=== PATIENT | female | born 1960 | race Two or more races ===

== ENCOUNTER → 2016-05-25 | Outpatient (REF) | payer OTHER | LOC: M SFHCWAGY 11:15 | PROVIDERS: ATTEND Nurse Practitioner Family | DX: Z12.72 Encounter for screening for malignant neoplasm of vagina (principal); N95.2 Postmenopausal atrophic vaginitis ==

== ENCOUNTER 2018-02-09 08:08 | Day surgery (SDC) | payer OTHER ==
[2018-02-09] MEDS ORDERED: PROPOFOL 200 MG/20 ML VIAL As Ordered ×3 (08:15→09:51)
[2018-02-09] MEDS ORDERED: LIDOCAINE 2% INJ 100 MG/5 ML SDV (FOR ANES.) As Ordered (08:15)
[2018-02-09] MEDS: NS 1,000 ML IV (08:45)
== END 2018-02-09 10:26 | disposition home or self-care (01) ==
LOC: M OPP 08:08
DX: Z12.11 Encounter for screening for malignant neoplasm of colon (principal); Z86.010 Personal history of colon polyps; D12.5 Benign neoplasm of sigmoid colon; K57.30 Diverticulosis of large intestine without perforation or abscess without bleeding; K21.9 Gastro-esophageal reflux disease without esophagitis; K29.70 Gastritis, unspecified, without bleeding; R00.2 Palpitations; I10 Essential (primary) hypertension; E78.5 Hyperlipidemia, unspecified; E03.9 Hypothyroidism, unspecified; E05.00 Thyrotoxicosis with diffuse goiter without thyrotoxic crisis or storm; R12 Heartburn; M06.9 Rheumatoid arthritis, unspecified; M79.7 Fibromyalgia; M32.9 Systemic lupus erythematosus, unspecified; M81.0 Age-related osteoporosis without current pathological fracture; F32.9 Major depressive disorder, single episode, unspecified; F41.9 Anxiety disorder, unspecified; E66.9 Obesity, unspecified; R56.9 Unspecified convulsions; J45.909 Unspecified asthma, uncomplicated; R06.83 Snoring; G47.30 Sleep apnea, unspecified; Z87.891 Personal history of nicotine dependence; Z79.82 Long term (current) use of aspirin; Z79.899 Other long term (current) drug therapy; Z80.0 Family history of malignant neoplasm of digestive organs
CPT/HCPCS: 45380

== ENCOUNTER → 2021-09-09 | Outpatient (CLI) | payer OTHER, MEDICAID ==
[~2021-09-09] MED LIST: ASPI1CHW2 PO; ASPI81TA21 PO; ATOR40TA75 PO; BREO1INH3 PO; CETI10TA PO; DOCU100C16 PO; FOLIC; HYDR200T3 PO; LEVO-88 PO; METH2.5T48 PO; METO50TA7 PO; MONT10TA97 PO; OMEP40CA4 PO; VALT500T PO; VENTAER IN
== END ==
LOC: M WHC 13:28
PROVIDERS: ATTEND Advanced Practice Midwife
DX: Z12.31 Encounter for screening mammogram for malignant neoplasm of breast (principal)

== ENCOUNTER → 2022-10-11 | Outpatient (CLI) | payer MEDICAID, OTHER ==
[~2022-10-11] MED LIST changes: -HYDR200T3 PO; +HYDR200T46 PO
== END ==
LOC: M WHC 09:48
PROVIDERS: ATTEND Physician Assistant Medical
DX: Z12.31 Encounter for screening mammogram for malignant neoplasm of breast (principal); Z80.3 Family history of malignant neoplasm of breast

== ENCOUNTER 2023-03-21 18:51 | Emergency (ER) | payer OTHER ==
[~2023-03-21] VITALS: Ht 165.1 cm; Wt 104.5 kg
[2023-03-21] MEDS ORDERED: DICL5SOL3 TOP (22:56)
[2023-03-21] MEDS ORDERED: LEVO50TA5 PO (22:56)
[2023-03-21] MEDS ORDERED: METO100T5 PO (22:56)
[2023-03-21] MEDS ORDERED: NYST100085 TOP (23:02)
[2023-03-21] MEDS ORDERED: ALEN70TA82 PO (23:02)
[2023-03-21] MEDS ORDERED: GLUC1TAB58 PO (23:02)
[2023-03-21] MEDS ORDERED: PROA1AER2 INH (23:04)
[2023-03-21] MEDS ORDERED: NAPR-885 PO (23:12)
[2023-03-21] MEDS ORDERED: VITA500T40 PO (23:12)
[2023-03-21] MEDS ORDERED: OYST500T92 PO (23:12)
[2023-03-21] MEDS ORDERED: ACET1TAB55 PO (23:12)
[2023-03-21] MEDS ORDERED: ACETAMINOPHEN 500 MG TAB PO ONE (23:40)
[2023-03-22 00:34] VITALS: BP 136/75; TEMP 98; O2SAT 95
== END 2023-03-22 00:53 | disposition home or self-care (01) ==
LOC: M ED 18:51 → EDBD 18:51 → M ED 03-22 00:53
DX: S42.352A Displaced comminuted fracture of shaft of humerus, left arm, initial encounter for closed fracture (principal); W19.XXXA Unspecified fall, initial encounter; G40.909 Epilepsy, unspecified, not intractable, without status epilepticus; G47.33 Obstructive sleep apnea (adult) (pediatric); J45.909 Unspecified asthma, uncomplicated; Z86.79 Personal history of other diseases of the circulatory system; Y92.009 Unspecified place in unspecified non-institutional (private) residence as the place of occurrence of the external cause; Y93.89 Activity, other specified; Y99.9 Unspecified external cause status; Z91.013 Allergy to seafood; Z91.048 Other nonmedicinal substance allergy status; Z79.52 Long term (current) use of systemic steroids; Z79.82 Long term (current) use of aspirin; Z79.02 Long term (current) use of antithrombotics/antiplatelets; Z79.83 Long term (current) use of bisphosphonates; Z79.899 Other long term (current) drug therapy

== ENCOUNTER → 2023-03-22 | Outpatient (CLI) | payer OTHER ==
[~2023-03-22] MED LIST changes: +ACET1TAB55 PO; +ALEN70TA82 PO; +DICL5SOL3 TOP; +GLUC1TAB58 PO; +LEVO50TA5 PO; +METO100T5 PO; +NAPR-885 PO; +NYST100085 TOP; +OYST500T92 PO; +PROA1AER2 INH; +VITA500T40 PO
== END ==
LOC: M RAD 12:20
PROVIDERS: ATTEND Orthopaedic Surgery Hand Surgery
DX: S42.252A Displaced fracture of greater tuberosity of left humerus, initial encounter for closed fracture (principal); S42.292A Other displaced fracture of upper end of left humerus, initial encounter for closed fracture; X58.XXXA Exposure to other specified factors, initial encounter; Y92.9 Unspecified place or not applicable; Y93.9 Activity, unspecified; Y99.9 Unspecified external cause status

== ENCOUNTER 2023-04-22 07:24 | Observation (INO) | payer OTHER ==
[~2023-04-22] VITALS: Ht 165.1 cm; Wt 105.6 kg
[~2023-04-22 07:24] MED LIST changes: +FLON1SPR; +FOLI1TAB11 PO; +HYDR100T33 PO; +PERC5TAB12 PO; +ceFAZolin SOD 2 GM in IV 1 EA IV ONE
[2023-04-22] MEDS ORDERED: LR 1,000 ML IV SCH ×2 (07:55→14:00)
[2023-04-22] MEDS ORDERED: fentaNYL 100 MCG/2 ML INJECTION As Ordered ONE (09:48)
[2023-04-22] MEDS ORDERED: KETOROLAC 60MG 2ML VIAL As Ordered ONE (09:49)
[2023-04-22] MEDS ORDERED: propofoL 200 MG/20 ML VIAL As Ordered ONE (09:49)
[2023-04-22] MEDS ORDERED: LIDOCAINE 2% 100MG/5ML SDV (FOR ANES.) As Ordered ONE (09:49)
[2023-04-22] MEDS ORDERED: ONDANSETRON 4MG 2ML VIAL As Ordered ONE (09:49)
[2023-04-22] MEDS ORDERED: SUGAMMADEX SODIUM 500 MG/5 ML VIAL (BRIDION) As Ordered ONE (09:49)
[2023-04-22] MEDS ORDERED: ROCURONIUM BROMIDE 50MG/5ML VIAL As Ordered ONE (09:49)
[2023-04-22] MEDS ORDERED: ROPIvacaine 0.5% 30ML VIAL PN ONE (09:55)
[2023-04-22] MEDS ORDERED: LIDOCAINE 1% SDV 5ML VIAL PN ONE (09:55)
[2023-04-22] MEDS ORDERED: EPINEPHrine INJ 1 MG/ML 1ML AMP PN ONE (09:55)
[2023-04-22] MEDS ORDERED: VANCOMYCIN 1000MG/20ML VIAL As Ordered ONE (10:07)
[2023-04-22] MEDS ORDERED: TRANEXAMIC ACID 100 MG/ML 10ML VIAL As Ordered ONE (10:07)
[2023-04-22] MEDS ORDERED: BACITRACIN OINTMENT 30GM TUBE As Ordered ONE (10:07)
[2023-04-22] MEDS: fentaNYL 100 MCG/2 ML INJECTION IV PRN ×2 (10:08→10:21)
[2023-04-22] MEDS: MIDAZOLAM INJ 2MG/2ML VIAL IV PRN ×2 (10:08→10:13)
[2023-04-22] MEDS ORDERED: LIDOCAINE W/EPINEPHRINE 1% 20ML VIAL As Ordered ONE (10:39)
[2023-04-22] MEDS ORDERED: ACETAMINOPHEN 1000MG 100ML IV BAG As Ordered ONE (11:10)
[2023-04-22] MEDS ORDERED: oxyCODONE 5MG TAB PO PRN (14:00)
[2023-04-22] MEDS ORDERED: ONDANSETRON 4MG 2ML VIAL IV PRN ×2 (14:00→17:15)
[2023-04-22] MEDS ORDERED: HYDROMORPHONE HCL 0.5 MG/ 0.5 ML SYRINGE IV PRN (14:00)
[2023-04-22] MEDS ORDERED: fentaNYL 100 MCG/2 ML INJECTION IV PRN (14:00)
[2023-04-22] MEDS ORDERED: IBUPROFEN 600MG TAB PO PRN (17:15)
[2023-04-22] MEDS ORDERED: HYDROmorphone 2 MG TAB PO PRN (17:15)
[2023-04-22] MEDS ORDERED: SENNA 8.6 MG TAB (SENOKOT) PO PRN (17:15)
[2023-04-22] MEDS ORDERED: MORPHINE 4 MG/ML 1ML VIAL IV PRN (17:15)
[2023-04-22] MEDS ORDERED: ALBUTEROL 90 MCG/ACT 8GM HFA INHALER INH PRN (17:35)
[2023-04-22 18:15] VITALS: BP 117/64; TEMP 97.8; O2SAT 94
[2023-04-22 18:45] VITALS: BP 114/69; TEMP 97.4; O2SAT 94
[2023-04-22 19:09] LABS: HEMATOCRIT 34.5 % (36.0-47.0); HEMOGLOBIN 11.1 g/dl (12.0-15.5); MEAN CORPUSCULAR HEMOGLOBIN 30.2 pg (27.0-33.0); MEAN CORPUSCULAR HGB CONC 32.2 g/dl (32.0-36.5); PLATELET COUNT, AUTOMATED 195 10^3/uL (150-450); RED BLOOD COUNT 3.67 10^6/uL (4.00-5.40); WHITE BLOOD COUNT 10.3 10^3/uL (4.0-10.0)
[2023-04-22 19:38] LABS: BLOOD UREA NITROGEN 18 MG/DL (9-23); CALCIUM LEVEL 7.9 MG/DL (8.3-10.6); CARBON DIOXIDE LEVEL 27 MMOL/L (20-31); CHLORIDE LEVEL 105 MMOL/L (98-107); CREATININE FOR GFR 0.94 MG/DL (0.55-1.30); GLOMERULAR FILTRATION RATE > 60.0 (>45); GLUCOSE, FASTING 129 MG/DL (74-106); POTASSIUM SERUM 4.8 MMOL/L (3.5-5.1); SODIUM LEVEL 138 MMOL/L (136-145)
[2023-04-22 19:45] VITALS: BP 104/59; TEMP 97.5; O2SAT 96
[2023-04-22] MEDS: ceFAZolin SOD 2 GM in IV 1 EA IV SCH (20:31)
[2023-04-22 20:45] VITALS: BP 127/72; TEMP 96.7; O2SAT 95
[2023-04-22] MEDS: DOCUSATE SODIUM 100MG CAPSULE PO SCH (20:50)
[2023-04-22 21:45] VITALS: BP 101/61; TEMP 97.3; O2SAT 95
[2023-04-22 22:45] VITALS: BP 100/60; TEMP 97; O2SAT 96
[2023-04-23] MEDS: oxyCODONE 5MG TAB PO PRN ×3 (02:44→12:24)
[2023-04-23 02:45] VITALS: BP 102/61; TEMP 97.3; O2SAT 95
[2023-04-23] MEDS: ceFAZolin SOD 2 GM in IV 1 EA IV SCH ×2 (03:40→10:05)
[2023-04-23] MEDS ORDERED: PILL CUTTER 1 EACH XX PRN (03:50)
[2023-04-23] MEDS: ACETAMINOPHEN TAB 650MG DOSE (2X325MG) PO PRN ×2 (05:10→12:23)
[2023-04-23] MEDS ORDERED: LEVOTHYROXINE 100MCG TABLET (0.1MG) PO SCH (06:00)
[2023-04-23 06:45] VITALS: BP 100/63; TEMP 97.5; O2SAT 95
[2023-04-23 07:59] LABS: BASO % 0.3 % (0.0-1.0); EOS # 0.1 10^3/uL (0.0-0.5); EOS % 0.7 % (0.0-3.0); HEMOGLOBIN 10.1 g/dl (12.0-15.5); LYMPH % 20.3 % (24.0-44.0); MEAN CORPUSCULAR HEMOGLOBIN 30.3 pg (27.0-33.0); MEAN CORPUSCULAR HGB CONC 32.6 g/dl (32.0-36.5); MEAN CORPUSCULAR VOLUME 93.1 fl (80.0-96.0); MONO # 1.1 10^3/uL (0.0-0.8); MONO % 11.3 % (2.0-8.0); NEUTROPHILS # 6.6 10^3/uL (1.5-8.5); NEUTROPHILS % 67.1 % (36.0-66.0); PLATELET COUNT, AUTOMATED 208 10^3/uL (150-450); RED BLOOD COUNT 3.33 10^6/uL (4.00-5.40); WHITE BLOOD COUNT 9.9 10^3/uL (4.0-10.0)
[2023-04-23] MEDS: DOCUSATE SODIUM 100MG CAPSULE PO SCH (08:16)
[2023-04-23 08:30] VITALS: BP 97/59; TEMP 97.3; O2SAT 95
[2023-04-23] MEDS ORDERED: valACYclovir HCL 500 MG TAB PO SCH (09:00)
[2023-04-23] MEDS ORDERED: HEPARIN SOD (PORCINE) 5000UNITS/ML 1ML VIAL/SYRINGE SC SCH (09:00)
[2023-04-23] MEDS ORDERED: OMEPRAZOLE 20MG CAP PO SCH (09:00)
[2023-04-23 10:50] VITALS: BP 135/66; TEMP 97; O2SAT 95
[2023-04-23] MEDS ORDERED: OXYC1TAB23 PO (11:20)
== END 2023-04-23 14:45 | disposition home or self-care (01) ==
LOC: M SDC 07:24 → M MS5PR 07:25
PROVIDERS: ADMIT Student in an Organized Health Care Education/Training Program; ATTEND Student in an Organized Health Care Education/Training Program
DX: S42.202A Unspecified fracture of upper end of left humerus, initial encounter for closed fracture (principal); W01.0XXA Fall on same level from slipping, tripping and stumbling without subsequent striking against object, initial encounter; Y92.89 Other specified places as the place of occurrence of the external cause; Y93.9 Activity, unspecified; Y99.9 Unspecified external cause status; J45.909 Unspecified asthma, uncomplicated; G47.33 Obstructive sleep apnea (adult) (pediatric); K21.9 Gastro-esophageal reflux disease without esophagitis; I10 Essential (primary) hypertension; E03.9 Hypothyroidism, unspecified; F41.9 Anxiety disorder, unspecified; Z79.82 Long term (current) use of aspirin; Z79.899 Other long term (current) drug therapy; Z91.013 Allergy to seafood; Z88.2 Allergy status to sulfonamides; J30.2 Other seasonal allergic rhinitis
CPT/HCPCS: 23472; 36415; 73020; 80048; 82330; 85025; 85027; 88300; 96365; 96366; 96372; 97161; C1713; C1776; J0131; J0690; J1100; J1885; J2250; J2405; J3010; J3370

== ENCOUNTER → 2023-04-29 | Outpatient (CLI) | payer OTHER ==
[~2023-04-29] MED LIST changes: +OXYC1TAB23 PO; -ceFAZolin SOD 2 GM in IV 1 EA IV ONE
== END ==
LOC: M SOG 08:09
PROVIDERS: ATTEND Physician Assistant
DX: S42.242A 4-part fracture of surgical neck of left humerus, initial encounter for closed fracture (principal); Z96.612 Presence of left artificial shoulder joint; Y93.9 Activity, unspecified; Y92.9 Unspecified place or not applicable

== ENCOUNTER → 2023-05-17 | Outpatient (CLI) | payer OTHER | LOC: M SOG 08:00 | PROVIDERS: ATTEND Physician Assistant | DX: Z96.612 Presence of left artificial shoulder joint (principal); Z87.81 Personal history of (healed) traumatic fracture ==

== ENCOUNTER → 2023-06-09 | Outpatient (REF) | payer OTHER | LOC: M LAB REF 16:50 | PROVIDERS: ATTEND Physician Assistant | DX: S42.242D 4-part fracture of surgical neck of left humerus, subsequent encounter for fracture with routine healing (principal) ==

== ENCOUNTER → 2023-06-16 | Outpatient (CLI) | payer OTHER | LOC: M SOG 08:33 | PROVIDERS: ATTEND Physician Assistant | DX: Z96.612 Presence of left artificial shoulder joint (principal); M19.012 Primary osteoarthritis, left shoulder; Z87.81 Personal history of (healed) traumatic fracture ==

== ENCOUNTER → 2023-07-15 | Outpatient (CLI) | payer OTHER, MEDICAID | LOC: M SOG 15:37 | PROVIDERS: ATTEND Physician Assistant | DX: S42.242D 4-part fracture of surgical neck of left humerus, subsequent encounter for fracture with routine healing (principal); Y92.9 Unspecified place or not applicable; Y93.9 Activity, unspecified ==

== ENCOUNTER → 2023-08-23 | Outpatient (CLI) | payer MEDICAID, OTHER | LOC: M WHC 10:58 | PROVIDERS: ATTEND Physician Assistant Medical | DX: S43.202A Unspecified subluxation of left sternoclavicular joint, initial encounter (principal); X58.XXXA Exposure to other specified factors, initial encounter; Y92.9 Unspecified place or not applicable; Y93.9 Activity, unspecified; Y99.9 Unspecified external cause status; M85.89 Other specified disorders of bone density and structure, multiple sites ==

== ENCOUNTER → 2023-10-06 | Outpatient (CLI) | payer OTHER | LOC: M SOG 07:59 | PROVIDERS: ATTEND Physician Assistant | DX: S42.202A Unspecified fracture of upper end of left humerus, initial encounter for closed fracture (principal); X58.XXXA Exposure to other specified factors, initial encounter; Y92.9 Unspecified place or not applicable; Y93.9 Activity, unspecified; Y99.9 Unspecified external cause status ==

== ENCOUNTER 2023-10-15 13:32 | Inpatient (IN) | payer OTHER ==
[~2023-10-15] VITALS: Ht 162.6 cm; Wt 106.8 kg
[2023-10-15] MEDS ORDERED: VANCOMYCIN HCL IV ONE (16:15)
[2023-10-15] MEDS ORDERED: FLUID PLACE HOLDER IV ONE (16:15)
[2023-10-15] MEDS: VANCOMYCIN HCL 1,000 MG, VIAL MATE ADAPTER 1 EACH in D5W 250 ML IV ONE ×2 (16:32→17:58)
[2023-10-15] MEDS: ACETAMINOPHEN TAB 650MG DOSE (2X325MG) PO ONE (16:32)
[2023-10-15 16:39] LABS: BASO # 0.1 10^3/uL (0.0-0.2); BASO % 0.6 % (0.0-1.0); EOS # 0.3 10^3/uL (0.0-0.5); EOS % 2.8 % (0.0-3.0); HEMATOCRIT 32.6 % (36.0-47.0); HEMOGLOBIN 10.1 g/dl (12.0-15.5); LYMPH % 34.1 % (24.0-44.0); MEAN CORPUSCULAR VOLUME 90.3 fl (80.0-96.0); MONO # 0.8 10^3/uL (0.0-0.8); MONO % 9.1 % (2.0-8.0); NEUTROPHILS # 4.7 10^3/uL (1.5-8.5); NEUTROPHILS % 53.1 % (36.0-66.0); PLATELET COUNT, AUTOMATED 308 10^3/uL (150-450); RED BLOOD COUNT 3.61 10^6/uL (4.00-5.40); WHITE BLOOD COUNT 8.8 10^3/uL (4.0-10.0)
[2023-10-15] MEDS ORDERED: VANCOMYCIN HCL 1,000 MG, VIAL MATE ADAPTER 1 EACH in D5W 250 ML IV SCH (16:45)
[2023-10-15 16:46] LABS: ERYTHROCYTE SEDIMENTATION RATE 65 mm/hr (0-30)
[2023-10-15 17:09] LABS: BLOOD UREA NITROGEN 13 MG/DL (9-23); CALCIUM LEVEL 8.7 MG/DL (8.3-10.6); CARBON DIOXIDE LEVEL 28 MMOL/L (20-31); CHLORIDE LEVEL 105 MMOL/L (98-107); CREATININE FOR GFR 0.84 MG/DL (0.55-1.30); GLOMERULAR FILTRATION RATE > 60.0 (>45); GLUCOSE, FASTING 114 MG/DL (74-106); POTASSIUM SERUM 4.3 MMOL/L (3.5-5.1); SODIUM LEVEL 140 MMOL/L (136-145)
[2023-10-15 17:15] LABS: PROCALCITONIN <0.04 ng/ml
[2023-10-15] MEDS ORDERED: ALBUTEROL 90 MCG/ACT 8GM HFA INHALER INH PRN (17:50)
[2023-10-15 18:14] LABS: PROCALCITONIN <0.04 ng/ml
[2023-10-15] MEDS ORDERED: ALBU8.5H INH (18:58)
[2023-10-15] MEDS ORDERED: LEVO100T5 PO (18:58)
[2023-10-15] MEDS ORDERED: METO200T15 PO (18:58)
[2023-10-15] MEDS ORDERED: ELIQ5TAB PO (19:01)
[2023-10-15] MEDS ORDERED: ACET-907 PO (19:01)
[2023-10-15] MEDS ORDERED: NITR-67 PO (19:01)
[2023-10-15] MEDS ORDERED: ADVA230A INH (19:01)
[2023-10-15] MEDS ORDERED: HOME MED LIST COMPLETE! XX SCH (19:05)
[2023-10-15 19:54] VITALS: BP 131/80; TEMP 97.7; O2SAT 98
[2023-10-15] MEDS: ATORVASTATIN 20 MG TAB PO SCH (20:35)
[2023-10-15] MEDS: VANCOMYCIN HCL 1,000 MG, VIAL MATE ADAPTER 1 EACH in D5W 250 ML IV SCH (20:35)
[2023-10-15] MEDS: APIXABAN 5 MG TAB (ELIQUIS) PO SCH (20:36)
[2023-10-15] MEDS: MONTELUKAST 10 MG TAB PO SCH (20:36)
[2023-10-15] MEDS: METOPROLOL SUCC (TopROL XL) 100MG *XL* TAB PO SCH (20:36)
[2023-10-15] MEDS: HYDROXYCHLOROQUINE 200 MG TAB PO SCH (20:52)
[2023-10-15] MEDS: FLUTICASONE PROP 0.05% NASAL SPRAY 16 GM (FLONASE) NARES SCH (20:52)
[2023-10-15] MEDS ORDERED: ENTER DRUG NAME HERE (PATIENT'S OWN MED) INH SCH (21:00)
[2023-10-16 04:00] VITALS: BP 137/82; TEMP 97.5; O2SAT 97
[2023-10-16] MEDS: LEVOTHYROXINE 100MCG TABLET (0.1MG) PO SCH (05:37)
[2023-10-16 08:36] LABS: BASO % 0.4 % (0.0-1.0); EOS # 0.2 10^3/uL (0.0-0.5); EOS % 2.2 % (0.0-3.0); HEMATOCRIT 32.9 % (36.0-47.0); HEMOGLOBIN 10.5 g/dl (12.0-15.5); LYMPH # 2.3 10^3/uL (1.5-5.0); LYMPH % 25.6 % (24.0-44.0); MEAN CORPUSCULAR HEMOGLOBIN 28.1 pg (27.0-33.0); MEAN CORPUSCULAR HGB CONC 31.9 g/dl (32.0-36.5); MONO # 0.8 10^3/uL (0.0-0.8); MONO % 8.9 % (2.0-8.0); NEUTROPHILS # 5.6 10^3/uL (1.5-8.5); NEUTROPHILS % 62.6 % (36.0-66.0); PLATELET COUNT, AUTOMATED 319 10^3/uL (150-450); RED BLOOD COUNT 3.74 10^6/uL (4.00-5.40)
[2023-10-16] MEDS: OMEPRAZOLE 20MG CAP PO SCH (08:45)
[2023-10-16] MEDS: CETIRIZINE (ZyrTEC) 10 MG TAB PO SCH (08:45)
[2023-10-16 08:51] LABS: HEMOGLOBIN A1c 5.8 % (4.0-6.0)
[2023-10-16 08:58] LABS: BLOOD UREA NITROGEN 10 MG/DL (9-23); CALCIUM LEVEL 8.8 MG/DL (8.3-10.6); CARBON DIOXIDE LEVEL 28 MMOL/L (20-31); CHLORIDE LEVEL 105 MMOL/L (98-107); CHOLESTEROL LEVEL 166 MG/DL (<200); CHOLESTEROL RISK RATIO 4.15 (<5); CREATININE FOR GFR 0.85 MG/DL (0.55-1.30); GLOMERULAR FILTRATION RATE > 60.0 (>45); GLUCOSE, FASTING 129 MG/DL (74-106); LDL CHOLESTEROL 96.8 MG/DL (<100); POTASSIUM SERUM 4.1 MMOL/L (3.5-5.1); SODIUM LEVEL 140 MMOL/L (136-145); TRIGLYCERIDES LEVEL 146 MG/DL (<150)
[2023-10-16] MEDS ORDERED: METOPROLOL TARTRATE 100MG TAB PO SCH (09:00)
[2023-10-16 09:01] LABS: THYROID STIMULATING HORMONE 2.057 uIU/ML (0.55-4.78)
[2023-10-16] MEDS: ADVAIR HFA 230/21MCG INHALER INH SCH (10:22)
[2023-10-16 12:24] VITALS: BP 123/73; TEMP 97.7; O2SAT 98
[2023-10-16] MEDS: ACETAMINOPHEN TAB 650MG DOSE (2X325MG) PO PRN (16:03)
[2023-10-16] MEDS: cefTRIAXone SOD 1 GM in D5W MINI-BAG PLUS 50 ML IV SCH (18:05)
[2023-10-16 21:02] VITALS: BP 127/70; TEMP 97.3; O2SAT 97
[2023-10-17 04:06] VITALS: BP 125/73; TEMP 97.7; O2SAT 97
[2023-10-17 07:02] LABS: BASO # 0.1 10^3/uL (0.0-0.2); BASO % 0.7 % (0.0-1.0); EOS # 0.2 10^3/uL (0.0-0.5); EOS % 2.4 % (0.0-3.0); HEMATOCRIT 31.5 % (36.0-47.0); HEMOGLOBIN 9.9 g/dl (12.0-15.5); LYMPH # 2.4 10^3/uL (1.5-5.0); LYMPH % 32.7 % (24.0-44.0); MEAN CORPUSCULAR HEMOGLOBIN 27.7 pg (27.0-33.0); MEAN CORPUSCULAR HGB CONC 31.4 g/dl (32.0-36.5); MEAN CORPUSCULAR VOLUME 88.2 fl (80.0-96.0); MONO # 0.8 10^3/uL (0.0-0.8); MONO % 10.9 % (2.0-8.0); NEUTROPHILS # 3.9 10^3/uL (1.5-8.5); NEUTROPHILS % 52.9 % (36.0-66.0); PLATELET COUNT, AUTOMATED 284 10^3/uL (150-450); RED BLOOD COUNT 3.57 10^6/uL (4.00-5.40); WHITE BLOOD COUNT 7.4 10^3/uL (4.0-10.0)
[2023-10-17 07:25] LABS: BLOOD UREA NITROGEN 9 MG/DL (9-23); CALCIUM LEVEL 8.4 MG/DL (8.3-10.6); CARBON DIOXIDE LEVEL 27 MMOL/L (20-31); CHLORIDE LEVEL 106 MMOL/L (98-107); CREATININE FOR GFR 0.86 MG/DL (0.55-1.30); GLOMERULAR FILTRATION RATE > 60.0 (>45); GLUCOSE, FASTING 105 MG/DL (74-106); POTASSIUM SERUM 4.4 MMOL/L (3.5-5.1); SODIUM LEVEL 140 MMOL/L (136-145)
[2023-10-17 12:00] VITALS: BP 128/75; TEMP 99; O2SAT 99
[2023-10-17 20:25] VITALS: BP 118/72; TEMP 97.3; O2SAT 95
[2023-10-17 21:44] VITALS: BP 127/74; O2SAT 96
[2023-10-18 04:43] VITALS: BP 109/69; TEMP 97.3; O2SAT 96
[2023-10-18 06:46] LABS: BASO # 0.1 10^3/uL (0.0-0.2); BASO % 0.7 % (0.0-1.0); EOS # 0.2 10^3/uL (0.0-0.5); EOS % 2.8 % (0.0-3.0); HEMATOCRIT 31.7 % (36.0-47.0); HEMOGLOBIN 9.9 g/dl (12.0-15.5); LYMPH # 2.6 10^3/uL (1.5-5.0); MEAN CORPUSCULAR HEMOGLOBIN 27.8 pg (27.0-33.0); MEAN CORPUSCULAR HGB CONC 31.2 g/dl (32.0-36.5); MONO # 0.8 10^3/uL (0.0-0.8); MONO % 10.8 % (2.0-8.0); NEUTROPHILS # 3.5 10^3/uL (1.5-8.5); NEUTROPHILS % 49.6 % (36.0-66.0); PLATELET COUNT, AUTOMATED 302 10^3/uL (150-450); RED BLOOD COUNT 3.56 10^6/uL (4.00-5.40); WHITE BLOOD COUNT 7.1 10^3/uL (4.0-10.0)
[2023-10-18 07:12] LABS: BLOOD UREA NITROGEN 11 MG/DL (9-23); CALCIUM LEVEL 8.6 MG/DL (8.3-10.6); CARBON DIOXIDE LEVEL 28 MMOL/L (20-31); CHLORIDE LEVEL 106 MMOL/L (98-107); CREATININE FOR GFR 0.89 MG/DL (0.55-1.30); GLOMERULAR FILTRATION RATE > 60.0 (>45); GLUCOSE, FASTING 104 MG/DL (74-106); POTASSIUM SERUM 4.3 MMOL/L (3.5-5.1); SODIUM LEVEL 141 MMOL/L (136-145)
[2023-10-18 12:00] VITALS: BP 123/73; TEMP 97.2; O2SAT 96
[2023-10-18 20:00] VITALS: BP 118/72; TEMP 97.5; O2SAT 99
[2023-10-18 21:00] VITALS: BP 118/72
[2023-10-19 03:58] VITALS: BP 121/73; TEMP 97.2; O2SAT 97
[2023-10-19] MEDS: CEFDINIR 300 MG CAP (OMNICEF) PO SCH (09:52)
[2023-10-19 10:00] VITALS: BP 147/77; TEMP 98.1; O2SAT 95
[2023-10-19 12:00] VITALS: BP 147/77; TEMP 98.1; O2SAT 95
[2023-10-19] MEDS ORDERED: CEFD300CAP PO (12:17)
[2023-10-19] MEDS ORDERED: PROBCAP14 PO (12:17)
== END 2023-10-19 14:15 | disposition home or self-care (01) | DRG 349 ==
LOC: M ED 13:32 → M ED INP 16:39 → M MSPAV 19:50
PROVIDERS: ADMIT General Practice; ATTEND Student in an Organized Health Care Education/Training Program
DX: T84.59XA Infection and inflammatory reaction due to other internal joint prosthesis, initial encounter (principal); I48.92 Unspecified atrial flutter; I10 Essential (primary) hypertension; I48.91 Unspecified atrial fibrillation; E78.5 Hyperlipidemia, unspecified; J45.909 Unspecified asthma, uncomplicated; L02.412 Cutaneous abscess of left axilla; M06.9 Rheumatoid arthritis, unspecified; M81.0 Age-related osteoporosis without current pathological fracture; G47.33 Obstructive sleep apnea (adult) (pediatric); Z79.01 Long term (current) use of anticoagulants; E89.0 Postprocedural hypothyroidism; K21.9 Gastro-esophageal reflux disease without esophagitis; Z91.013 Allergy to seafood; Z88.2 Allergy status to sulfonamides; Z79.899 Other long term (current) drug therapy; F41.9 Anxiety disorder, unspecified; Z87.891 Personal history of nicotine dependence; Z79.82 Long term (current) use of aspirin; Y83.1 Surgical operation with implant of artificial internal device as the cause of abnormal reaction of the patient, or of later complication, without mention of misadventure at the time of the procedure

== ENCOUNTER → 2023-11-10 | Outpatient (CLI) | payer OTHER ==
[~2023-11-10] MED LIST changes: +ACET-907 PO; +ADVA230A INH; +ALBU8.5H INH; +CEFD300CAP PO; +ELIQ5TAB PO; +LEVO100T5 PO; +METO200T15 PO; +NITR-67 PO; +PROBCAP14 PO
== END ==
LOC: M WHC 12:55
PROVIDERS: ATTEND Physician Assistant Medical
DX: Z12.31 Encounter for screening mammogram for malignant neoplasm of breast (principal); R92.323 Mammographic fibroglandular density, bilateral breasts

== ENCOUNTER → 2024-01-02 | Outpatient (CLI) | payer OTHER ==
[2024-01-02 15:31] LABS: HEMATOCRIT 30.2 % (36.0-47.0); HEMOGLOBIN 9.5 g/dl (12.0-15.5); MEAN CORPUSCULAR HEMOGLOBIN 28.2 pg (27.0-33.0); MEAN CORPUSCULAR HGB CONC 31.5 g/dl (32.0-36.5); MEAN CORPUSCULAR VOLUME 89.6 fl (80.0-96.0); PLATELET COUNT, AUTOMATED 399 10^3/uL (150-450); RED BLOOD COUNT 3.37 10^6/uL (4.00-5.40); WHITE BLOOD COUNT 9.2 10^3/uL (4.0-10.0)
[2024-01-02 16:13] LABS: ERYTHROCYTE SEDIMENTATION RATE 72 mm/hr (0-30)
== END ==
LOC: M PLALAB 13:27
PROVIDERS: ATTEND Internal Medicine Infectious Disease
DX: L02.412 Cutaneous abscess of left axilla (principal); A49.01 Methicillin susceptible Staphylococcus aureus infection, unspecified site

== ENCOUNTER → 2024-01-19 | Outpatient (CLI) | payer OTHER | LOC: M SOG 07:21 | PROVIDERS: ATTEND Physician Assistant | DX: S42.242D 4-part fracture of surgical neck of left humerus, subsequent encounter for fracture with routine healing (principal); Z96.612 Presence of left artificial shoulder joint ==

== ENCOUNTER → 2024-01-25 | Outpatient (CLI) | payer OTHER ==
[2024-01-25 12:16] LABS: BASO # 0.1 10^3/uL (0.0-0.2); BASO % 0.9 % (0.0-1.0); EOS # 0.2 10^3/uL (0.0-0.5); EOS % 3.6 % (0.0-3.0); HEMATOCRIT 31.5 % (36.0-47.0); HEMOGLOBIN 9.6 g/dl (12.0-15.5); LYMPH # 2.9 10^3/uL (1.5-5.0); LYMPH % 43.3 % (24.0-44.0); MEAN CORPUSCULAR HEMOGLOBIN 27.8 pg (27.0-33.0); MEAN CORPUSCULAR HGB CONC 30.5 g/dl (32.0-36.5); MEAN CORPUSCULAR VOLUME 91.3 fl (80.0-96.0); MONO # 0.6 10^3/uL (0.0-0.8); MONO % 8.8 % (2.0-8.0); NEUTROPHILS # 2.8 10^3/uL (1.5-8.5); NEUTROPHILS % 43.1 % (36.0-66.0); PLATELET COUNT, AUTOMATED 291 10^3/uL (150-450); RED BLOOD COUNT 3.45 10^6/uL (4.00-5.40); WHITE BLOOD COUNT 6.6 10^3/uL (4.0-10.0)
[2024-01-25 12:21] LABS: ERYTHROCYTE SEDIMENTATION RATE 73 mm/hr (0-30)
[2024-01-25 13:06] LABS: BLOOD UREA NITROGEN 16 MG/DL (9-23); CALCIUM LEVEL 8.8 MG/DL (8.3-10.6); CARBON DIOXIDE LEVEL 29 MMOL/L (20-31); CHLORIDE LEVEL 106 MMOL/L (98-107); CREATININE FOR GFR 0.89 MG/DL (0.55-1.30); GLOMERULAR FILTRATION RATE > 60.0 (>45); GLUCOSE, FASTING 73 MG/DL (74-106); POTASSIUM SERUM 4.1 MMOL/L (3.5-5.1); SODIUM LEVEL 138 MMOL/L (136-145)
== END ==
LOC: M LAB 11:45
PROVIDERS: ATTEND Internal Medicine Infectious Disease
DX: L98.8 Other specified disorders of the skin and subcutaneous tissue (principal); Z96.612 Presence of left artificial shoulder joint

== ENCOUNTER → 2024-01-27 | Outpatient (CLI) | payer OTHER | LOC: M RAD 14:49 | PROVIDERS: ATTEND Internal Medicine Infectious Disease | DX: L98.8 Other specified disorders of the skin and subcutaneous tissue (principal); Z96.612 Presence of left artificial shoulder joint ==

== ENCOUNTER → 2024-02-16 | Outpatient (CLI) | payer OTHER ==
[~2024-02-16] MED LIST changes: +CEFA500C2 PO
[2024-02-16 15:04] LABS: BASO # 0.1 10^3/uL (0.0-0.2); BASO % 0.6 % (0.0-1.0); EOS # 0.3 10^3/uL (0.0-0.5); EOS % 3.9 % (0.0-3.0); HEMATOCRIT 31.4 % (36.0-47.0); HEMOGLOBIN 9.9 g/dl (12.0-15.5); LYMPH # 3.4 10^3/uL (1.5-5.0); MEAN CORPUSCULAR HEMOGLOBIN 29.2 pg (27.0-33.0); MEAN CORPUSCULAR HGB CONC 31.5 g/dl (32.0-36.5); MEAN CORPUSCULAR VOLUME 92.6 fl (80.0-96.0); MONO # 0.7 10^3/uL (0.0-0.8); MONO % 9.1 % (2.0-8.0); NEUTROPHILS # 3.6 10^3/uL (1.5-8.5); NEUTROPHILS % 44.2 % (36.0-66.0); PLATELET COUNT, AUTOMATED 317 10^3/uL (150-450); RED BLOOD COUNT 3.39 10^6/uL (4.00-5.40); WHITE BLOOD COUNT 8.2 10^3/uL (4.0-10.0)
[2024-02-16 15:08] LABS: C REACTIVE PROTEIN QUANTITATIV 0.6 MG/DL (<1.0)
[2024-02-16 15:11] LABS: ERYTHROCYTE SEDIMENTATION RATE 56 mm/hr (0-30)
[2024-02-17 08:40] LABS: PERCENT SATURATION 13.4 % (13.2-45.0)
[2024-02-17 08:43] LABS: FOLATE 12.2 NG/ML (>5.4)
== END ==
LOC: M PLALAB 12:52
PROVIDERS: ATTEND Internal Medicine Infectious Disease
DX: A49.01 Methicillin susceptible Staphylococcus aureus infection, unspecified site (principal); D64.9 Anemia, unspecified

== ENCOUNTER → 2024-02-20 | Outpatient (CLI) | payer OTHER ==
[~2024-02-20] MED LIST changes: +ISOVUE-300 61% 100ML VIAL As Ordered ONE; +LIDOCAINE 1% MDV 20ML VIAL As Ordered ONE
[2024-02-20 09:50] VITALS: TEMP 97.7
[2024-02-20 10:55] VITALS: BP 132/64; O2SAT 97
== END ==
LOC: M IRPRO 09:41
PROVIDERS: ATTEND Internal Medicine Infectious Disease
DX: L98.8 Other specified disorders of the skin and subcutaneous tissue (principal); Z96.612 Presence of left artificial shoulder joint
CPT/HCPCS: 20500; Q9967

== ENCOUNTER 2024-02-27 06:13 | Inpatient (IN) | payer OTHER ==
[~2024-02-27] VITALS: Ht 162.6 cm; Wt 107.5 kg
[2024-02-27] VITALS (11 sets, daily range): BP systolic 105–118; BP diastolic 67–78; TEMP 96.8–98.1; O2SAT 93–99
[~2024-02-27 06:13] MED LIST changes: +GLYCOPYRROLATE INJ 0.2 MG/ML 2 ML VIAL As Ordered ONE; -ISOVUE-300 61% 100ML VIAL As Ordered ONE; +KETOROLAC 60MG 2ML VIAL As Ordered ONE; -LIDOCAINE 1% MDV 20ML VIAL As Ordered ONE; +LIDOCAINE 2% 100MG/5ML SDV (FOR ANES.) As Ordered ONE; +MIDAZOLAM INJ 2MG/2ML VIAL As Ordered ONE; +ONDANSETRON 4MG 2ML VIAL As Ordered ONE; +ROCURONIUM BROMIDE 50MG/5ML VIAL As Ordered ONE; +fentaNYL 100 MCG/2 ML INJECTION As Ordered ONE; +propofoL 200 MG/20 ML VIAL As Ordered ONE
[2024-02-27] MEDS ORDERED: dexAMETHasone 10MG/1ML VIAL PRES.FREE PN ONE (06:50)
[2024-02-27] MEDS ORDERED: fentaNYL 100 MCG/2 ML INJECTION IV PRN ×2 (06:50→12:05)
[2024-02-27] MEDS ORDERED: LIDOCAINE 1% SDV 5ML VIAL PN ONE (06:50)
[2024-02-27] MEDS: NS 1,000 ML IV SCH ×2 (07:15→12:05)
[2024-02-27] MEDS: EPINEPHrine INJ 1 MG/ML 1ML AMP As Ordered ONE (07:18)
[2024-02-27] MEDS: MIDAZOLAM INJ 2MG/2ML VIAL IV PRN (07:54)
[2024-02-27 08:03] LABS: HEMATOCRIT 32.9 % (36.0-47.0); HEMOGLOBIN 10.2 g/dl (12.0-15.5); MEAN CORPUSCULAR HEMOGLOBIN 28.1 pg (27.0-33.0); MEAN CORPUSCULAR VOLUME 90.6 fl (80.0-96.0); PLATELET COUNT, AUTOMATED 294 10^3/uL (150-450); RED BLOOD COUNT 3.63 10^6/uL (4.00-5.40); WHITE BLOOD COUNT 7.2 10^3/uL (4.0-10.0)
[2024-02-27] MEDS: ceFAZolin SOD 2 GM in IV 1 EA IV ONE (08:16)
[2024-02-27] MEDS: ROPIvacaine 0.5% 30ML VIAL PN ONE (08:22)
[2024-02-27] MEDS ORDERED: ePHEDrine SULFATE 25 MG/5 ML(5MG/ML) SYRINGE As Ordered ONE (08:24)
[2024-02-27] MEDS: TRANEXAMIC ACID 100 MG/ML 10ML VIAL As Ordered ONE (08:45)
[2024-02-27] MEDS ORDERED: PHENYLephrine 500MCG 5ML (100MCG/ML) SYRINGE As Ordered ONE (09:05)
[2024-02-27] MEDS: LIDOCAINE W/EPINEPHRINE 1% 20ML VIAL As Ordered ONE (09:15)
[2024-02-27] MEDS: LIDOCAINE 1% MDV 20ML VIAL As Ordered ONE (09:39)
[2024-02-27] MEDS: VANCOMYCIN 1000MG/20ML VIAL As Ordered ONE (09:40)
[2024-02-27] MEDS ORDERED: SUGAMMADEX SODIUM 500 MG/5 ML VIAL (BRIDION) As Ordered ONE (10:34)
[2024-02-27] MEDS ORDERED: oxyCODONE 5MG TAB PO PRN (12:05)
[2024-02-27] MEDS ORDERED: ONDANSETRON 4MG 2ML VIAL IV PRN (12:05)
[2024-02-27] MEDS ORDERED: HYDROMORPHONE HCL 0.5 MG/ 0.5 ML SYRINGE IV PRN (12:05)
[2024-02-27] MEDS ORDERED: ALBUTEROL 90 MCG/ACT 8GM HFA INHALER INH PRN (13:40)
[2024-02-27] MEDS ORDERED: NYSTATIN OINTMENT 15 GM TOP PRN (13:40)
[2024-02-27] MEDS ORDERED: ceFAZolin SOD 1 GM in DEXTROSE 5% (D5W) ADV/MINI-BAG 50 ML IV SCH (13:45)
[2024-02-27 14:41] LABS: ALBUMIN 3.3 G/DL (3.2-5.2); ALKALINE PHOSPHATASE 96 U/L (35-104); ALT/SGPT 17 U/L (7.0-40); AST/SGOT 18 U/L (<34); BILIRUBIN,TOTAL 0.4 MG/DL (0.3-1.2); BLOOD UREA NITROGEN 19 MG/DL (9-23); CARBON DIOXIDE LEVEL 23 MMOL/L (20-31); CHLORIDE LEVEL 109 MMOL/L (98-107); CREATININE FOR GFR 0.86 MG/DL (0.55-1.30); GLOMERULAR FILTRATION RATE > 60.0 (>45); GLUCOSE, FASTING 136 MG/DL (74-106); POTASSIUM SERUM 4.2 MMOL/L (3.5-5.1); SODIUM LEVEL 140 MMOL/L (136-145); TOTAL PROTEIN 6.9 G/DL (5.7-8.2)
[2024-02-27] MEDS: ceFAZolin SOD 2 GM in IV 1 EA IV SCH (17:07)
[2024-02-27] MEDS: ADVAIR HFA 230/21MCG INHALER INH SCH (20:07)
[2024-02-27] MEDS: DOCUSATE SODIUM 100MG CAPSULE PO PRN (22:50)
[2024-02-27] MEDS: MONTELUKAST 10 MG TAB PO SCH (22:50)
[2024-02-27] MEDS: MUPIROCIN 2% OINT 22 GM TUBE TOP SCH (22:50)
[2024-02-27] MEDS: ACETAMINOPHEN 325 MG TAB PO PRN (22:51)
[2024-02-27] MEDS: HYDROXYCHLOROQUINE 200 MG TAB PO SCH (23:36)
[2024-02-27] MEDS: METOPROLOL SUCC (TopROL XL) 100MG *XL* TAB PO SCH (23:37)
[2024-02-28] VITALS (10 sets, daily range): BP systolic 96–112; BP diastolic 55–74; PULSE 89; TEMP 97.2–99.3; O2SAT 92–97
[2024-02-28] MEDS: MORPHINE 4 MG/ML 1ML VIAL IV PRN (02:44)
[2024-02-28 05:39] LABS: MEAN CORPUSCULAR HEMOGLOBIN 28.5 pg (27.0-33.0); MEAN CORPUSCULAR HGB CONC 31.8 g/dl (32.0-36.5); MEAN CORPUSCULAR VOLUME 89.7 fl (80.0-96.0); PLATELET COUNT, AUTOMATED 286 10^3/uL (150-450); RED BLOOD COUNT 2.63 10^6/uL (4.00-5.40); WHITE BLOOD COUNT 9.9 10^3/uL (4.0-10.0)
[2024-02-28 05:53] LABS: HEMATOCRIT 23.6 % (36.0-47.0); HEMOGLOBIN 7.5 g/dl (12.0-15.5)
[2024-02-28 06:16] LABS: BILIRUBIN,TOTAL 0.3 MG/DL (0.3-1.2); CALCIUM LEVEL 8.6 MG/DL (8.3-10.6); CREATININE FOR GFR 1.01 MG/DL (0.55-1.30); GLOMERULAR FILTRATION RATE 58.9 (>45); POTASSIUM SERUM 4.7 MMOL/L (3.5-5.1); TOTAL PROTEIN 6.1 G/DL (5.7-8.2)
[2024-02-28] MEDS: LEVOTHYROXINE 100MCG TABLET (0.1MG) PO SCH (06:31)
[2024-02-28] MEDS: ATORVASTATIN 20 MG TAB PO SCH (08:45)
[2024-02-28] MEDS: valACYclovir HCL 500 MG TAB PO SCH (08:46)
[2024-02-28] MEDS: CETIRIZINE (ZyrTEC) 10 MG TAB PO SCH (08:46)
[2024-02-28] MEDS: CALCIUM/VITAMIN D 500 MG TAB PO SCH (08:47)
[2024-02-28] MEDS: OMEPRAZOLE 20MG CAP PO SCH (08:47)
[2024-02-28] MEDS: LIDOCAINE 5% (LIDODERM) PATCH TD SCH (08:47)
[2024-02-28] MEDS: ONDANSETRON 4MG 2ML VIAL IV PRN (09:32)
[2024-02-28] MEDS ORDERED: MUPIROCIN 2% OINT 22 GM TUBE TOP SCH (21:00)
[2024-02-28] MEDS: MUPIROCIN 2% OINT 22 GM TUBE TOP SCH (22:26)
[2024-02-28] MEDS: oxyCODONE 5MG TAB PO PRN (22:27)
[2024-02-28] MEDS: MIRALAX *UNIT DOSE* 17GM PACKET PO PRN (22:28)
[2024-02-29 04:00] VITALS: BP 102/52; TEMP 98.4; O2SAT 94
[2024-02-29 08:00] VITALS: BP_SYST 106; BP_DIAS 54; BP_DIAS 57; TEMP 97.3; O2SAT 94
[2024-02-29 09:56] LABS: HEMATOCRIT 27.9 % (36.0-47.0); HEMOGLOBIN 8.7 g/dl (12.0-15.5); MEAN CORPUSCULAR HGB CONC 31.2 g/dl (32.0-36.5); MEAN CORPUSCULAR VOLUME 89.7 fl (80.0-96.0); PLATELET COUNT, AUTOMATED 300 10^3/uL (150-450); RED BLOOD COUNT 3.11 10^6/uL (4.00-5.40); WHITE BLOOD COUNT 8.7 10^3/uL (4.0-10.0)
[2024-02-29 10:22] LABS: CALCIUM LEVEL 9.2 MG/DL (8.3-10.6); CREATININE FOR GFR 1.07 MG/DL (0.55-1.30); GLOMERULAR FILTRATION RATE 55.1 (>45); POTASSIUM SERUM 4.5 MMOL/L (3.5-5.1)
[2024-02-29 12:00] VITALS: BP 144/78; TEMP 97.3; O2SAT 94
[2024-02-29] MEDS: SODIUM CHLORIDE 0.9% INJ 10 ML SYR IV SCH (17:04)
[2024-02-29 20:30] VITALS: BP 109/67; TEMP 97.3; O2SAT 92
[2024-03-01 04:00] VITALS: BP 118/72; TEMP 97.9; O2SAT 93
[2024-03-01 05:40] LABS: HEMATOCRIT 26.5 % (36.0-47.0); HEMOGLOBIN 8.2 g/dl (12.0-15.5); MEAN CORPUSCULAR HEMOGLOBIN 28.3 pg (27.0-33.0); MEAN CORPUSCULAR HGB CONC 30.9 g/dl (32.0-36.5); MEAN CORPUSCULAR VOLUME 91.4 fl (80.0-96.0); PLATELET COUNT, AUTOMATED 263 10^3/uL (150-450); WHITE BLOOD COUNT 7.7 10^3/uL (4.0-10.0)
[2024-03-01 06:06] LABS: BLOOD UREA NITROGEN 17 MG/DL (9-23); CALCIUM LEVEL 9.4 MG/DL (8.3-10.6); CARBON DIOXIDE LEVEL 28 MMOL/L (20-31); CHLORIDE LEVEL 105 MMOL/L (98-107); CREATININE FOR GFR 0.97 MG/DL (0.55-1.30); GLOMERULAR FILTRATION RATE > 60.0 (>45); GLUCOSE, FASTING 111 MG/DL (74-106); POTASSIUM SERUM 4.2 MMOL/L (3.5-5.1); SODIUM LEVEL 138 MMOL/L (136-145)
[2024-03-01] MEDS ORDERED: BISACODYL 10MG SUPP PR PRN (11:40)
[2024-03-01 12:00] VITALS: BP 145/93; TEMP 97.7; O2SAT 93
[2024-03-01] MEDS: SENNA 8.6 MG TAB (SENOKOT) PO SCH (12:47)
[2024-03-01] MEDS: MIRALAX *UNIT DOSE* 17GM PACKET PO SCH (12:47)
[2024-03-01 20:00] VITALS: BP 117/67; TEMP 98.2; O2SAT 94
[2024-03-02 04:00] VITALS: BP 155/80; TEMP 97.2; O2SAT 94
[2024-03-02 05:30] LABS: HEMATOCRIT 25.6 % (36.0-47.0); MEAN CORPUSCULAR HEMOGLOBIN 28.8 pg (27.0-33.0); MEAN CORPUSCULAR HGB CONC 31.3 g/dl (32.0-36.5); MEAN CORPUSCULAR VOLUME 92.1 fl (80.0-96.0); PLATELET COUNT, AUTOMATED 271 10^3/uL (150-450); RED BLOOD COUNT 2.78 10^6/uL (4.00-5.40)
[2024-03-02 05:59] LABS: BLOOD UREA NITROGEN 16 MG/DL (9-23); CALCIUM LEVEL 8.7 MG/DL (8.3-10.6); CARBON DIOXIDE LEVEL 29 MMOL/L (20-31); CHLORIDE LEVEL 106 MMOL/L (98-107); CREATININE FOR GFR 0.86 MG/DL (0.55-1.30); GLOMERULAR FILTRATION RATE > 60.0 (>45); GLUCOSE, FASTING 119 MG/DL (74-106); POTASSIUM SERUM 4.4 MMOL/L (3.5-5.1); SODIUM LEVEL 139 MMOL/L (136-145)
[2024-03-02 09:00] VITALS: BP_SYST 123; BP_SYST 126; BP_DIAS 53; BP_DIAS 56; TEMP 97.5; O2SAT 92; O2SAT 94
[2024-03-02 11:53] VITALS: BP 164/76; TEMP 97.5; O2SAT 97
[2024-03-02 14:57] LABS: CHOLESTEROL LEVEL 156 MG/DL (<200); CHOLESTEROL RISK RATIO 3.27 (<5); HDL CHOLESTEROL 47.6 MG/DL (>40); LDL CHOLESTEROL 85.2 MG/DL (<100); NON-HDL-C 108.4 MG/DL; TRIGLYCERIDES LEVEL 116 MG/DL (<150)
[2024-03-02] MEDS: MUPIROCIN 2% OINT 22 GM TUBE TOP SCH (15:40)
[2024-03-02 20:00] VITALS: BP 101/58; TEMP 97.7; O2SAT 96
[2024-03-02] MEDS: SODIUM CHLORIDE 0.9% INJ 10 ML SYR IV PRN (23:38)
[2024-03-03] VITALS (8 sets, daily range): BP systolic 121–166; BP diastolic 74–87; TEMP 96–98.3; O2SAT 94–97
[2024-03-03 06:28] LABS: HEMATOCRIT 24.3 % (36.0-47.0); HEMOGLOBIN 7.5 g/dl (12.0-15.5); MEAN CORPUSCULAR HEMOGLOBIN 28.3 pg (27.0-33.0); MEAN CORPUSCULAR HGB CONC 30.9 g/dl (32.0-36.5); MEAN CORPUSCULAR VOLUME 91.7 fl (80.0-96.0); PLATELET COUNT, AUTOMATED 243 10^3/uL (150-450); RED BLOOD COUNT 2.65 10^6/uL (4.00-5.40); WHITE BLOOD COUNT 6.2 10^3/uL (4.0-10.0)
[2024-03-03 06:51] LABS: BLOOD UREA NITROGEN 17 MG/DL (9-23); CALCIUM LEVEL 8.6 MG/DL (8.3-10.6); CARBON DIOXIDE LEVEL 30 MMOL/L (20-31); CHLORIDE LEVEL 108 MMOL/L (98-107); CREATININE FOR GFR 0.82 MG/DL (0.55-1.30); GLOMERULAR FILTRATION RATE > 60.0 (>45); GLUCOSE, FASTING 105 MG/DL (74-106); POTASSIUM SERUM 4.4 MMOL/L (3.5-5.1); SODIUM LEVEL 140 MMOL/L (136-145)
[2024-03-03 08:36] LABS: IRON (FE) 31 UG/DL (50-170); PERCENT SATURATION 14.2 % (13.2-45.0); TOTAL IRON BINDING CAPACITY 219 UG/DL (250-425)
[2024-03-03 08:39] LABS: FERRITIN 77.8 NG/ML (7.3-270.7)
[2024-03-04 04:00] VITALS: BP 146/69; TEMP 97.3; O2SAT 94
[2024-03-04 06:03] LABS: HEMATOCRIT 26.7 % (36.0-47.0); HEMOGLOBIN 8.3 g/dl (12.0-15.5); MEAN CORPUSCULAR HEMOGLOBIN 27.9 pg (27.0-33.0); MEAN CORPUSCULAR HGB CONC 31.1 g/dl (32.0-36.5); MEAN CORPUSCULAR VOLUME 89.6 fl (80.0-96.0); PLATELET COUNT, AUTOMATED 249 10^3/uL (150-450); RED BLOOD COUNT 2.98 10^6/uL (4.00-5.40); WHITE BLOOD COUNT 6.6 10^3/uL (4.0-10.0)
[2024-03-04 06:23] LABS: BLOOD UREA NITROGEN 17 MG/DL (9-23); CALCIUM LEVEL 8.7 MG/DL (8.3-10.6); CARBON DIOXIDE LEVEL 30 MMOL/L (20-31); CHLORIDE LEVEL 107 MMOL/L (98-107); CREATININE FOR GFR 0.86 MG/DL (0.55-1.30); GLOMERULAR FILTRATION RATE > 60.0 (>45); GLUCOSE, FASTING 105 MG/DL (74-106); POTASSIUM SERUM 4.8 MMOL/L (3.5-5.1); SODIUM LEVEL 141 MMOL/L (136-145)
[2024-03-04] MEDS: IRON POLYSAC (NIFEREX) 150 MG CAP PO SCH (10:59)
[2024-03-04 20:00] VITALS: BP 121/59; TEMP 98.3; O2SAT 96
[2024-03-04 22:08] VITALS: BP 114/73
[2024-03-05 04:00] VITALS: BP 142/71; TEMP 97.9; O2SAT 96
[2024-03-05 06:05] LABS: HEMATOCRIT 26.8 % (36.0-47.0); HEMOGLOBIN 8.5 g/dl (12.0-15.5); MEAN CORPUSCULAR HEMOGLOBIN 28.8 pg (27.0-33.0); MEAN CORPUSCULAR HGB CONC 31.7 g/dl (32.0-36.5); MEAN CORPUSCULAR VOLUME 90.8 fl (80.0-96.0); PLATELET COUNT, AUTOMATED 261 10^3/uL (150-450); RED BLOOD COUNT 2.95 10^6/uL (4.00-5.40); WHITE BLOOD COUNT 6.8 10^3/uL (4.0-10.0)
[2024-03-05 06:28] LABS: BLOOD UREA NITROGEN 17 MG/DL (9-23); CALCIUM LEVEL 8.6 MG/DL (8.3-10.6); CARBON DIOXIDE LEVEL 29 MMOL/L (20-31); CHLORIDE LEVEL 106 MMOL/L (98-107); CREATININE FOR GFR 0.85 MG/DL (0.55-1.30); GLOMERULAR FILTRATION RATE > 60.0 (>45); GLUCOSE, FASTING 106 MG/DL (74-106); POTASSIUM SERUM 4.8 MMOL/L (3.5-5.1); SODIUM LEVEL 141 MMOL/L (136-145)
[2024-03-05] MEDS: DAPTOmycin 750 MG in NS 50 ML IV SCH (09:53)
[2024-03-05 11:45] VITALS: BP 141/72; TEMP 97; O2SAT 97
[2024-03-05] MEDS ORDERED: NIFE15CA PO (12:48)
[2024-03-05] MEDS ORDERED: SENO8.6T5 PO (12:48)
[2024-03-05] MEDS ORDERED: MIRA33506 PO (12:48)
== END 2024-03-05 15:08 | disposition home health service (06) | DRG 320 ==
LOC: M SDC 06:13 → M MSPAV 13:37
PROVIDERS: ADMIT Orthopaedic Surgery Hand Surgery; ATTEND Student in an Organized Health Care Education/Training Program
PROC: 0JBF0ZZ Excision of Left Upper Arm Subcutaneous Tissue and Fascia, Open Approach (ICD-10-PCS; 2024-02-27)
PROC: 0RPK0JZ Removal of Synthetic Substitute from Left Shoulder Joint, Open Approach (ICD-10-PCS; principal; 2024-02-27 07:30)
PROC: 0RHK08Z Insertion of Spacer into Left Shoulder Joint, Open Approach (ICD-10-PCS; 2024-02-27 07:30)
PROC: 30233N1 Transfusion of Nonautologous Red Blood Cells into Peripheral Vein, Percutaneous Approach (ICD-10-PCS; 2024-02-28)
DX: T84.59XA Infection and inflammatory reaction due to other internal joint prosthesis, initial encounter (principal); I10 Essential (primary) hypertension; A60.00 Herpesviral infection of urogenital system, unspecified; D50.9 Iron deficiency anemia, unspecified; E53.8 Deficiency of other specified B group vitamins; E78.00 Pure hypercholesterolemia, unspecified; I48.91 Unspecified atrial fibrillation; J45.909 Unspecified asthma, uncomplicated; M06.9 Rheumatoid arthritis, unspecified; M25.112 Fistula, left shoulder; Z96.619 Presence of unspecified artificial shoulder joint; T81.83XA Persistent postprocedural fistula, initial encounter; E66.813 Obesity, class 3; G47.33 Obstructive sleep apnea (adult) (pediatric); M81.0 Age-related osteoporosis without current pathological fracture; E89.0 Postprocedural hypothyroidism; K59.00 Constipation, unspecified; Z91.013 Allergy to seafood; Z88.2 Allergy status to sulfonamides; Z79.899 Other long term (current) drug therapy; B95.62 Methicillin resistant Staphylococcus aureus infection as the cause of diseases classified elsewhere; Y83.1 Surgical operation with implant of artificial internal device as the cause of abnormal reaction of the patient, or of later complication, without mention of misadventure at the time of the procedure

== ENCOUNTER → 2024-03-07 | Outpatient (CLI) | payer OTHER ==
[~2024-03-07] MED LIST changes: -GLYCOPYRROLATE INJ 0.2 MG/ML 2 ML VIAL As Ordered ONE; -KETOROLAC 60MG 2ML VIAL As Ordered ONE; -LIDOCAINE 2% 100MG/5ML SDV (FOR ANES.) As Ordered ONE; -MIDAZOLAM INJ 2MG/2ML VIAL As Ordered ONE; +MIRA33506 PO; +NIFE15CA PO; -ONDANSETRON 4MG 2ML VIAL As Ordered ONE; -ROCURONIUM BROMIDE 50MG/5ML VIAL As Ordered ONE; +SENO8.6T5 PO; -fentaNYL 100 MCG/2 ML INJECTION As Ordered ONE; -propofoL 200 MG/20 ML VIAL As Ordered ONE
== END ==
LOC: M SOG 13:11
PROVIDERS: ATTEND Physician Assistant
DX: Z96.612 Presence of left artificial shoulder joint (principal)

== ENCOUNTER → 2024-03-23 | Outpatient (CLI) | payer OTHER ==
[~2024-03-23] VITALS: Ht 162.6 cm; Wt 107.0 kg
[~2024-03-23] MED LIST changes: +SODIUM CHLORIDE 0.9% INJ 10 ML SYR IV PRN; +SODIUM CHLORIDE 0.9% INJ 10 ML SYR IV SCH
[2024-03-23 08:58] VITALS: BP 119/70; O2SAT 97
[2024-03-23] MEDS: ALTEPLASE 2MG/2ML VIAL XX ONE (09:08)
== END ==
LOC: M INFU 08:36
PROVIDERS: ATTEND Internal Medicine Infectious Disease
DX: T82.594A Other mechanical complication of infusion catheter, initial encounter (principal)
CPT/HCPCS: 36593; J2997

== ENCOUNTER → 2024-03-23 | Outpatient (CLI) | payer OTHER ==
[~2024-03-23] MED LIST changes: -SODIUM CHLORIDE 0.9% INJ 10 ML SYR IV PRN; -SODIUM CHLORIDE 0.9% INJ 10 ML SYR IV SCH
== END ==
LOC: M IRPRO 08:35
PROVIDERS: ATTEND Internal Medicine Infectious Disease
DX: A49.01 Methicillin susceptible Staphylococcus aureus infection, unspecified site (principal); Z96.612 Presence of left artificial shoulder joint; Z53.8 Procedure and treatment not carried out for other reasons

== ENCOUNTER → 2024-05-02 | Outpatient (REF) | LOC: M PLAIMG 12:15 | PROVIDERS: ATTEND Internal Medicine | DX: M25.512 Pain in left shoulder (principal); M61.512 Other ossification of muscle, left shoulder ==

== ENCOUNTER → 2024-05-21 | Outpatient (CLI) | payer OTHER ==
[2024-05-21 15:19] LABS: HEMATOCRIT 36.9 % (36.0-47.0); HEMOGLOBIN 11.3 g/dl (12.0-15.5); MEAN CORPUSCULAR HEMOGLOBIN 28.4 pg (27.0-33.0); MEAN CORPUSCULAR HGB CONC 30.6 g/dl (32.0-36.5); MEAN CORPUSCULAR VOLUME 92.7 fl (80.0-96.0); PLATELET COUNT, AUTOMATED 298 10^3/uL (150-450); RED BLOOD COUNT 3.98 10^6/uL (4.00-5.40); WHITE BLOOD COUNT 6.5 10^3/uL (4.0-10.0)
[2024-05-21 15:34] LABS: ERYTHROCYTE SEDIMENTATION RATE 35 mm/hr (0-30)
== END ==
LOC: M PLALAB 11:20
PROVIDERS: ATTEND Internal Medicine Infectious Disease
DX: A49.01 Methicillin susceptible Staphylococcus aureus infection, unspecified site (principal)

== ENCOUNTER → 2024-07-02 | Outpatient (CLI) | payer OTHER ==
[~2024-07-02] MED LIST changes: +DICL1SOL4 TOP; -DICL5SOL3 TOP
== END ==
LOC: M PLAIMG 10:52
PROVIDERS: ATTEND Physician Assistant
DX: M25.512 Pain in left shoulder (principal); T84.59XD Infection and inflammatory reaction due to other internal joint prosthesis, subsequent encounter; Z96.612 Presence of left artificial shoulder joint

== ENCOUNTER 2024-08-29 07:07 | Observation (INO) | payer OTHER ==
[~2024-08-29] VITALS: Ht 162.6 cm; Wt 109.8 kg
[~2024-08-29 07:07] MED LIST changes: +ASPI81TA26 PO
[2024-08-29] MEDS: LIDOCAINE 1% SDV 5ML VIAL PN ONE (08:25)
[2024-08-29] MEDS: dexAMETHasone 10MG/1ML VIAL PRES.FREE PN ONE (08:25)
[2024-08-29] MEDS: ROPIvacaine 0.5% 30ML VIAL PN ONE (08:25)
[2024-08-29] MEDS ORDERED: propofoL 200 MG/20 ML VIAL As Ordered ONE (08:38)
[2024-08-29] MEDS ORDERED: ONDANSETRON 4MG 2ML VIAL As Ordered ONE (08:38)
[2024-08-29] MEDS ORDERED: ROCURONIUM BROMIDE 50MG/5ML VIAL As Ordered ONE (08:38)
[2024-08-29] MEDS ORDERED: MIDAZOLAM INJ 2MG/2ML VIAL As Ordered ONE (08:38)
[2024-08-29] MEDS ORDERED: LIDOCAINE 2% 100MG/5ML SDV (FOR ANES.) As Ordered ONE (08:38)
[2024-08-29] MEDS ORDERED: fentaNYL 100 MCG/2 ML INJECTION As Ordered ONE (08:39)
[2024-08-29] MEDS: MIDAZOLAM INJ 2MG/2ML VIAL IV PRN (08:51)
[2024-08-29] MEDS: fentaNYL 100 MCG/2 ML INJECTION IV PRN (08:51)
[2024-08-29] MEDS: ceFAZolin SOD 2 GM IV ONCE IV ONE (09:00)
[2024-08-29] MEDS: TRANEXAMIC ACID 100 MG/ML 10ML VIAL As Ordered ONE (10:00)
[2024-08-29] MEDS: ceFAZolin SODIUM 2 GM VIAL As Ordered ONE (10:15)
[2024-08-29] MEDS: LIDOCAINE W/EPINEPHRINE 1% 20ML VIAL As Ordered ONE (10:23)
[2024-08-29] MEDS: VANCOMYCIN 1000MG/20ML VIAL As Ordered ONE (13:23)
[2024-08-29] MEDS ORDERED: ACETAMINOPHEN 1000MG/100ML IV BAG As Ordered ONE (13:25)
[2024-08-29] MEDS ORDERED: SUGAMMADEX SODIUM 500 MG/5 ML VIAL As Ordered ONE (14:12)
[2024-08-29] MEDS ORDERED: fentaNYL 100 MCG/2 ML INJECTION IV PRN (14:30)
[2024-08-29] MEDS ORDERED: MORPHINE 2 MG/ML 1ML VIAL IV PRN (14:30)
[2024-08-29] MEDS ORDERED: dexmedeTOMIDine (4MCG/ML)200MCG/50ML BTL (PRECEDEX) As Ordered ONE (14:51)
[2024-08-29] MEDS ORDERED: ONDANSETRON 4MG 2ML VIAL IV PRN (15:05)
[2024-08-29] MEDS ORDERED: LR 1,000 ML IV SCH (15:05)
[2024-08-29] MEDS ORDERED: MORPHINE 4 MG/ML 1ML VIAL IV PRN (15:05)
[2024-08-29] MEDS: HYDROMORPHONE HCL 0.5 MG/ 0.5 ML SYRINGE IV PRN (15:06)
[2024-08-29] MEDS ORDERED: HYDROmorphone HCL 2MG/ML 1ML VIAL As Ordered ONE (15:06)
[2024-08-29] MEDS: ONDANSETRON 4MG 2ML VIAL IV PRN (15:09)
[2024-08-29] MEDS: oxyCODONE 5MG TAB PO PRN (15:19)
[2024-08-29] MEDS ORDERED: METOCLOPRAMIDE INJ 10MG/2ML VIAL IV PRN (15:20)
[2024-08-29 16:30] VITALS: BP 126/83; TEMP 97; O2SAT 99
[2024-08-29] MEDS ORDERED: BACI1CAP PO (16:54)
[2024-08-29] MEDS ORDERED: PERC5TAB12 PO (16:54)
[2024-08-29] MEDS ORDERED: CEPH500C PO (16:54)
[2024-08-29] MEDS ORDERED: SENO8.6T10 PO (16:54)
[2024-08-29] MEDS ORDERED: MILKSUS3 PO (16:54)
[2024-08-29] MEDS ORDERED: MIRA3350 PO (16:54)
[2024-08-29] MEDS: PERCOCET 5MG/325MG TAB PO ONE (16:56)
[2024-08-29 17:00] VITALS: BP 126/83; TEMP 97.2; O2SAT 97
[2024-08-29] MEDS ORDERED: ALBUTEROL 90 MCG/ACT 8GM HFA INHALER INH PRN (17:10)
[2024-08-29 17:30] VITALS: BP 129/84; TEMP 97.2; O2SAT 95
[2024-08-29] MEDS: ceFAZolin SODIUM 2 GM in DEXTROSE 5% (D5W) ADV/MINI-BAG 50 ML IV SCH (18:29)
[2024-08-29] MEDS: CETIRIZINE 10 MG TAB PO SCH (18:58)
[2024-08-29] MEDS: ATORVASTATIN 20 MG TAB PO SCH (18:58)
[2024-08-29] MEDS: ADVAIR HFA 230/21MCG INHALER INH SCH (20:44)
[2024-08-29 21:00] VITALS: BP 109/65; TEMP 97.7; O2SAT 96
[2024-08-29] MEDS: METOPROLOL SUCC. 100MG *XL* TAB PO SCH (21:00)
[2024-08-29] MEDS: ACETAMINOPHEN 325 MG TAB PO PRN (21:52)
[2024-08-29] MEDS: MONTELUKAST 10 MG TAB PO SCH (21:54)
[2024-08-29] MEDS: HYDROXYCHLOROQUINE 200 MG TAB PO SCH (21:54)
[2024-08-30 03:21] VITALS: BP_SYST 100; BP_SYST 121; BP_DIAS 64; BP_DIAS 65; TEMP 97.3; O2SAT 96
[2024-08-30] MEDS: PERCOCET 5MG/325MG TAB PO PRN (05:21)
[2024-08-30] MEDS: LEVOTHYROXINE 100MCG TABLET (0.1MG) PO SCH (05:21)
[2024-08-30 05:52] LABS: HEMATOCRIT 27.4 % (36.0-47.0); HEMOGLOBIN 8.7 g/dl (12.0-15.5); MEAN CORPUSCULAR HEMOGLOBIN 29.6 pg (27.0-33.0); MEAN CORPUSCULAR HGB CONC 31.8 g/dl (32.0-36.5); MEAN CORPUSCULAR VOLUME 93.2 fl (80.0-96.0); PLATELET COUNT, AUTOMATED 268 10^3/uL (150-450); RED BLOOD COUNT 2.94 10^6/uL (4.00-5.40); WHITE BLOOD COUNT 11.9 10^3/uL (4.0-10.0)
[2024-08-30 06:26] LABS: BILIRUBIN,TOTAL 0.3 MG/DL (0.3-1.2); CALCIUM LEVEL 7.5 MG/DL (8.3-10.6); CREATININE FOR GFR 1.05 MG/DL (0.55-1.30); GLOMERULAR FILTRATION RATE 59.7 (>45); POTASSIUM SERUM 4.3 MMOL/L (3.5-5.1); TOTAL PROTEIN 5.7 G/DL (5.7-8.2)
[2024-08-30 08:00] VITALS: BP 118/64; TEMP 97.7; O2SAT 97
[2024-08-30] MEDS: CYANOCOBALAMIN 500 MCG TAB PO SCH (09:24)
[2024-08-30] MEDS: OMEPRAZOLE 20MG CAP PO SCH (09:24)
[2024-08-30] MEDS: IRON POLYSAC 150 MG CAP PO SCH (09:24)
[2024-08-30 12:00] VITALS: BP 133/66; TEMP 97.7; O2SAT 95
== END 2024-08-30 17:45 | disposition home or self-care (01) ==
LOC: M SDC 07:07 → M RR INP 07:08 → M MS5PR 16:30
PROVIDERS: ADMIT General Practice; ATTEND General Practice
DX: T84.59XA Infection and inflammatory reaction due to other internal joint prosthesis, initial encounter (principal); Z96.612 Presence of left artificial shoulder joint; I48.21 Permanent atrial fibrillation; I10 Essential (primary) hypertension; M06.9 Rheumatoid arthritis, unspecified; E03.9 Hypothyroidism, unspecified; E78.5 Hyperlipidemia, unspecified; J45.909 Unspecified asthma, uncomplicated; F41.9 Anxiety disorder, unspecified; M81.0 Age-related osteoporosis without current pathological fracture; E66.9 Obesity, unspecified; A60.00 Herpesviral infection of urogenital system, unspecified; Z79.899 Other long term (current) drug therapy; Z79.2 Long term (current) use of antibiotics; Z88.2 Allergy status to sulfonamides; Z91.013 Allergy to seafood; J30.2 Other seasonal allergic rhinitis
CPT/HCPCS: 23473; 36415; 73020; 80053; 85027; 87070; 87075; 87205; 88305; 94640; 94664; 96365; 96366; 97116; 97161; 97165; 97530; C1713; C1762; C1776; J0131; J0690; J1100; J1171; J2250; J2405; J3010; J3370

== ENCOUNTER → 2024-10-23 | Outpatient (CLI) | payer OTHER ==
[~2024-10-23] MED LIST changes: +BACI1CAP PO; +CEPH500C PO; +MILKSUS3 PO; +MIRA3350 PO; +SENO8.6T10 PO
== END ==
LOC: M SOG 07:10
PROVIDERS: ATTEND Physician Assistant
DX: Z53.9 Procedure and treatment not carried out, unspecified reason (principal)

== ENCOUNTER → 2024-12-14 | Outpatient (CLI) | payer OTHER ==
[~2024-12-14] MED LIST changes: +SENN-225 PO; -SENO8.6T5 PO
== END ==
LOC: M SOG 07:37
PROVIDERS: ATTEND Physician Assistant
DX: T84.59XD Infection and inflammatory reaction due to other internal joint prosthesis, subsequent encounter (principal)

== ENCOUNTER → 2024-12-21 | Outpatient (CLI) | payer OTHER | LOC: M WHC 13:03 | PROVIDERS: ATTEND Advanced Practice Midwife | DX: Z12.31 Encounter for screening mammogram for malignant neoplasm of breast (principal) ==

== ENCOUNTER → 2025-03-28 | Outpatient (CLI) | payer OTHER, MEDICAID | LOC: M SOG 07:38 | PROVIDERS: ATTEND Physician Assistant | DX: S42.242D 4-part fracture of surgical neck of left humerus, subsequent encounter for fracture with routine healing (principal); Z96.612 Presence of left artificial shoulder joint ==